=== PATIENT | male | born 1970 | race Caucasian/White ===

== ENCOUNTER 2018-02-18 19:37 | Emergency (ER) | payer SELFPAY ==
--- NOTE | 2018-02-18 19:56 | EDM.PDOC ---
ED HPI GENERAL MEDICAL PROBLEM - General Chief Complaint: Behavioral/Psych Stated Complaint: MENTAL EVAL Time Seen by Provider: 02/18/18 19:55 Source of Information: Reports: Patient History Limitations: Reports: No Limitations - History of Present Illness INITIAL COMMENTS - FREE TEXT/NARRATIVE: HISTORY AND PHYSICAL: History of present illness: 47-year-old male presenting to emergency department with homicidal ideations. Patient states that currently he is having homicidal ideations. States he has no gas, no support, no friends and feels hopless so came to the emergency department to get advice and help. He has had homicidal ideations in the past. States that he used to take Risperdal which seemed to help but has not been taking it for the past 2 years. He lives in [place] and is originally from [place]. He moved to the [facility] in 1986. He is a long-term smoker and smokes approximately 2 packs a day. He also states that he used to have a medical marijuana card which did help with his mental status. He drinks alcohol socially. He is only complaining of a mild headache and states that he took for Tylenol before coming to the emergency department. He currently denies any chest pain, palpitations, shortness of breath, syncopal episodes, or focal neurologic deficits. Review of systems: As per history of present illness and below otherwise all systems reviewed and negative. Past medical history: As per history of present illness and as reviewed below otherwise noncontributory. Surgical history: As per history of present illness and as reviewed below otherwise noncontributory. Social history: No reported history of drug or alcohol abuse. Family history: As per history of present illness and as reviewed below otherwise noncontributory. Physical exam: HEENT: Atraumatic, normocephalic, pupils reactive, negative for conjunctival pallor or scleral icterus, mucous membranes moist, throat clear, neck supple, nontender, trachea midline. Lungs: Clear to auscultation, breath sounds equal bilaterally, chest nontender. Heart: S1S2, regular, negative for clicks, rubs, or JVD. Abdomen: Soft, nondistended, nontender. Negative for masses or hepatosplenomegaly. Negative for costovertebral tenderness. Pelvis: Stable nontender. Genitourinary: Deferred. Rectal: Deferred. Extremities: Atraumatic, negative for cords or calf pain. Neurovascular unremarkable. Neuro: Awake, alert, oriented. Cranial nerves II through XII unremarkable. Cerebellum unremarkable. Motor and sensory unremarkable throughout. Exam nonfocal. Diagnostics: CBC, CMP, UA, urine drug screen, mag, TSH, EKG Therapeutics: Ativan 1 mg by mouth 1 Impression: Homicidal ideations Plan: CBC did show mild leukocytosis however rapid strep as well as chest x-ray were negative. Patient most likely has leukocytosis secondary to agitation as he has not been symptomatic during stay and all other labs were unremarkable. Patient was transferred to [facility] inpatient psych with accepting physician Dr. Moore. Patient is amenable to admittion for pych in [facility]. Definitive disposition and diagnosis as appropriate pending reevaluation and review of above. GARLAND Pain Score (Numeric/FACES): 5 - Related Data Allergies Allergy/AdvReac Type Severity Reaction Status Date / Time No Known Allergies Allergy Verified 02/18/18 19:58 Home Meds: Home Meds . [No Known Home Meds] 02/18/18 [History] ED ROS GENERAL - Review of Systems Review Of Systems: ROS reveals no pertinent complaints other than HPI. ED EXAM, GENERAL - Physical Exam Exam: See Below Course - Vital Signs Last Recorded V/S: Last Vital Signs Temp 98.4 F 02/18/18 19:55 Pulse 88 02/18/18 19:55 Resp 12 02/18/18 19:55 BP 161/101 H 02/18/18 19:55 Pulse Ox 97 02/18/18 19:55 - Orders/Labs/Meds Orders: Active Orders 24 hr Category Date Time Status EKG Documentation Completion [RC] STAT Care 02/18/18 20:08 Active CXR [Chest 2V] [CR] Stat Exams 02/18/18 20:31 Taken CULTURE STREP A CONFIRMATION [RM] Stat Lab 02/18/18 20:53 Results DRUG SCREEN, URINE [URCHEM] Stat Lab 02/18/18 21:46 Received STREP SCRN A RAPID W CULT CONF [RM] Stat Lab 02/18/18 20:53 Results UA W/MICROSCOPIC [URIN] Stat Lab 02/18/18 21:46 Received LORazepam [Ativan] Med 02/18/18 21:56 Once 1 mg PO ONETIME ONE Labs: Laboratory Tests 02/18/18 02/18/18 Range/Units 20:17 20:17 WBC 13.25 H (4.0-11.0) K/uL RBC 5.48 (4.50-5.90) M/uL Hgb 17.4 H (13.0-17.0) g/dL Hct 50.2 H (38.0-50.0) % MCV 91.6 (80.0-98.0) fL MCH 31.8 (27.0-32.0) pg MCHC 34.7 (31.0-37.0) g/dL RDW Std Deviation 43.1 (28.0-62.0) fl RDW Coeff of Waylon 13 (11.0-15.0) % Plt Count 230 (150-400) K/uL MPV 10.20 (7.40-12.00) fL Neut % (Auto) 58.2 (48.0-80.0) % Lymph % (Auto) 30.3 (16.0-40.0) % [place] % (Auto) 7.2 (0.0-15.0) % Eos % (Auto) 3.9 (0.0-7.0) % Baso % (Auto) 0.4 (0.0-1.5) % Neut # (Auto) 7.7 H (1.4-5.7) K/uL Lymph # (Auto) 4.0 H (0.6-2.4) K/uL [place] # (Auto) 1.0 H (0.0-0.8) K/uL Eos # (Auto) 0.5 (0.0-0.7) K/uL Baso # (Auto) 0.1 (0.0-0.1) K/uL Nucleated RBC % 0.0 /100WBC Nucleated RBCs # 0 K/uL Sodium 138 (136-148) mmol/L Potassium 3.7 (3.5-5.1) mmol/L Chloride 104 (98-107) mmol/L Carbon Dioxide 26.9 (21.0-32.0) mmol/L BUN 13 (7.0-18.0) mg/dL Creatinine 0.9 (0.8-1.3) mg/dL Est Cr Clr Drug Dosing 113.77 mL/min Estimated GFR (MDRD) > 60.0 ml/min Glucose 87 (74-106) mg/dL Calcium 10.4 H (8.5-10.1) mg/dL Magnesium 1.7 L (1.8-2.4) mg/dL Total Bilirubin 0.3 (0.2-1.0) mg/dL AST 12 L (15-37) IU/L ALT 22 (14-63) IU/L Alkaline Phosphatase 99 (46-116) U/L Total Protein 7.8 (6.4-8.2) g/dL Albumin 4.0 (3.4-5.0) g/dL Globulin 3.8 H (2.0-3.5) g/dL Albumin/Globulin Ratio 1.1 L (1.3-2.8) TSH 3rd Generation 3.25 (0.36-3.74) uIU/mL Salicylates 5.2 (0-20) mg/dL Acetaminophen 0.0 ug/mL Ethyl Alcohol <3 mg/dL Meds: Medications Discontinued Medications Generic Name Dose Route Start Last Admin Trade Name Alonzoq PRN Reason Stop Dose Admin Lorazepam 1 mg 02/18/18 20:12 02/18/18 20:21 Ativan PO 02/18/18 20:13 1 mg ONETIME ONE Administration Departure - Departure Time of Disposition: 21:53 Disposition: DC/Tfer to Psych Hosp/Unit 65 Condition: Fair Clinical Impression: Homicidal ideations - Discharge Information Referrals: PCP,None [Primary Care Provider] - Forms: ED Department Discharge - My Orders Last 24 Hours: My Active Orders 02/18/18 20:08 EKG Documentation Completion [RC] STAT 02/18/18 20:31 CXR [Chest 2V] [CR] Stat 02/18/18 20:53 CULTURE STREP A CONFIRMATION [RM] Stat STREP SCRN A RAPID W CULT CONF [RM] Stat 02/18/18 21:46 DRUG SCREEN, URINE [URCHEM] Stat UA W/MICROSCOPIC [URIN] Stat 02/18/18 21:56 LORazepam [Ativan] 1 mg PO ONETIME ONE - Assessment/Plan Last 24 Hours: My Active Orders 02/18/18 20:08 EKG Documentation Completion [RC] STAT 02/18/18 20:31 CXR [Chest 2V] [CR] Stat 02/18/18 20:53 CULTURE STREP A CONFIRMATION [RM] Stat STREP SCRN A RAPID W CULT CONF [RM] Stat 02/18/18 21:46 DRUG SCREEN, URINE [URCHEM] Stat UA W/MICROSCOPIC [URIN] Stat 02/18/18 21:56 LORazepam [Ativan] 1 mg PO ONETIME ONE
[2018-02-18] MEDS ORDERED: LORazepam 1 MG Tab PO ONE ×2 (20:12→21:56)
[2018-02-18 20:56] LABS: CHLORIDE,CL 104 mmol/L (98-107); SODIUM,NA 138 mmol/L (136-148)
--- NOTE | 2018-02-19 09:34 | CR ---
EXAM DATE: 02/18/18 PATIENT'S AGE: 47 Patient: SAHIL MORIN Facility: [place], [place] Site . Site : [id number] Study: XRay Chest [id number] 9:05:20 PM Ordering Physician: Wenceslao Valdez Final Report: INDICATION: Swollen lymph nodes, high white blood cell count TECHNIQUE: Chest radiograph 2 views COMPARISON: None FINDINGS: Mediastinum: The mediastinum is normal in appearance. The heart silhouette is normal in size and morphology. Lung: Both lungs are unremarkable in appearance. No sign of pleural effusion seen. No pneumothorax is identified. Musculoskeletal: Unremarkable for age. IMPRESSION: 1. No acute cardiopulmonary disease is seen. Dictated by: Dwayne Kasper MD @ 02/18/2018 21:07:32 (Electronic Signature) Report Signed by Proxy. [facility] [address]
== END 2018-02-18 22:35 ==
LOC: MW.ED 19:37
DX: R45.850 Homicidal ideations (principal)
CPT/HCPCS: 36415; 71046; 80053; 80305; 81001; 83735; 84443; 85025; 87081; 87880; 93005; 99285; A9270; G0480; 99283